=== PATIENT | male | born 1980 | race Caucasian/White ===

== ENCOUNTER 2016-05-19 18:36 | Observation (INO) | payer SELFPAY ==
[2016-05-19 19:32] VITALS: BMI 28.4
[2016-05-19 19:46] LABS: AUTOMATED BASOPHIL 0.9 % (0-2); AUTOMATED EOSINOPHIL 2.8 % (0-5); AUTOMATED LYMPH 28.1 % (17-44); AUTOMATED MONOCYTE 12.8 % (3-10); AUTOMATED NEUTROPHIL 55.4 % (45-76); MPV 9.5 fL (7.4-10.4)
[2016-05-19 20:06] LABS: BLOOD UREA NITROGEN 19 MG/DL (9-20); CALCIUM 10.1 MG/DL (8.4-10.2); CALCULATED OSMOLALITY 274 MOs/Kg (270-290); CHLORIDE 99 mEq/L (98-107); ETOH-MGDL < 10 mg/dL; GLUCOSE 76 MG/DL (70-99); SODIUM LEVEL 142 mEq/L (137-146); TOTAL PROTEIN 8.3 G/DL (6.3-8.2)
[2016-05-19 21:43] LABS: ALL NEG? YES; MDMA* NEG (NEGATIVE); METHAMPHETAMINES NEG (NEGATIVE); OXYCODONE NEG (NEGATIVE)
[2016-05-19 21:54] LABS: LEUKOCYTES/URINE NEG (NEGATIVE); NITRITE/URINE NEG (NEGATIVE); URINE OCCULT BLOOD NEG (NEG/TRACE); WBC/URINE 0-2 (0-2)
--- NOTE | 2016-05-19 22:02 | EDPRACDOC ---
- General Information Chief Complaint: Psychiatric Illness Stated Complaint: PSYCH EVAL Time Seen by Provider: 05/19/16 21:37 Information Source: Patient Mode of Arrival: Car Home Medications: Home Medications No Home Medications 05/19/16 Allergies/Adverse Reactions: Allergies Allergy/AdvReac Type Severity Reaction Status Date / Time No Known Allergies Allergy Verified 05/19/16 19:34 - History of Present Illness HPI: PT PRESENTS WITH DEPRESSION FOR ABOUT 1 YEAR, STATES THAT IS NOT USUALLY HIM - USUALLY HE IS THE [employer] [place] [employer]. HE HAS BEEN HIKING THE [employer] FROM [place] (HIS IS FROM [place]). HAS KIDS IN [place], GOOD RELATIONSHIP WITH THEM. LOST HIS MOM ABOUT 2 THANKSGIVINGS AGO. DENIES DRUG USE. INTERMITTENT ALCOHOL USE. PT HAS NO PSYCH HISTORY, NEVER TREATED FOR DEPRESSION. SUICIDAL THOUGHTS. RECENTLY SITTING ON A HIGH BRIDGE, AND THOUGHT ABOUT JUMPING BUT WAS WORRIED ABOUT WHAT IT WOULD DO TO HIS KIDS. HE IS JUST WONDERING WHAT THE POINT IS ON WALKING AROUND ON THIS EARTH. Suicidal Plan: Reports: Other ED Past Medical History - History Reviewed Yes Nurses notes reviewed and agree except as marked - Patient Medical History Psychological History: Denies: Depression Systemic History: Denies: Cancer - Social Medical History Smoking Status: Heavy tobacco smoker (5 or more cigarettes/day or daily pipe/ cigar) EDM Review of Systems - Review of Systems ROS Negative Except as Marked: Yes All systems reviewed and were negative except as marked Constitutional: No Symptoms Reported Mouth: No Symptoms Reported Respiratory: No Symptoms Reported Cardiovascular: No Symptoms Reported Gastrointestinal: No Symptoms Reported Genitourinary: No Symptoms Reported - Physical Exam Constitutional: Alert (Awake), No apparent distress Oriented to: Time, Person, Place Last recorded Vital Signs: Last Vital Signs Temp 98.6 F 05/19/16 19:28 Pulse 66 05/19/16 19:28 Resp 20 05/19/16 19:28 BP 144/84 05/19/16 19:28 Pulse Ox 99 05/19/16 19:28 Oxygen Pulse Oxygen Saturation 99 O2 Device Room Air Oxygen Flow Rate Fraction of Inspired Oxygen ( FIO2) - HEENT Head: Normal ( normocephalic) Eye Exam: Normal (PERRL, EOMI, Sclera white) Oropharynx: Normal (Pharynx:Moist without exudate,Gums-no swelling) Nose: No Symptoms Reported (septum midline) Neck: Normal (FROM, trachea at midline) - Respiratory/Cardiovascular Respiratory: Normal - CTA (BBS clear to auscultation without adventitious sounds ) Cardiovascular: Normal (RRR without murmur, gallop or rub) - GI Auscultation: Normal (NABS) Palpation: Normal (Soft,No rebound or guarding, non distended) Tenderness: Non tender Manjarrez's Sign: Negative - Musculoskeletal Back: Normal (Non-Tender) Extremities: Normal (Normal tone, Pulses 2+ No cyanosis or edema, FROM) - Integumentary Skin: Normal, Warm, Dry Lymphatics: Normal (no adenopathy) - Neurologic Memory Impaired: Normal Motor Function: Normal (Normal tone, Pulses 2+ No cyanosis or edema, FROM) Cranial Nerve: Normal (CN II-X11 intact sensation, strength 5/5) Cerebellar: Normal Mood Description: Normal Perception: Normal - Results 05/19/16 19:31 05/19/16 19:31 WBC 8.9 xk/uL (3.8-10.8) 05/19/16 19:31 RBC 4.73 xM/uL (4.70-6.10) 05/19/16 19:31 Hgb 15.6 g/dL (14.0-18.0) 05/19/16 19:31 Hct 45.4 % (42-52) 05/19/16 19:31 MCV 96 fL (80-94) H 05/19/16 19:31 MCH 33.0 pg (27-32) H 05/19/16 19:31 MCHC 34.4 g/dl (33-36) 05/19/16 19:31 RDW 13.2 % (11.5-14.5) 05/19/16 19:31 Plt Count 279 xk/uL (130-400) 05/19/16 19:31 MPV 9.5 fL (7.4-10.4) 05/19/16 19:31 Neut % (Auto) 55.4 % (45-76) 05/19/16 19:31 Lymph % (Auto) 28.1 % (17-44) 05/19/16 19:31 Parker % (Auto) 12.8 % (3-10) H 05/19/16 19:31 Eos % (Auto) 2.8 % (0-5) 05/19/16 19:31 Baso % (Auto) 0.9 % (0-2) 05/19/16 19:31 Absolute Neuts (auto) 4.90 xk/uL (1.7-8.2) 05/19/16 19:31 Absolute Lymphs (auto) 2.49 xk/uL (0.65-4.75) 05/19/16 19:31 Sodium 142 mEq/L (137-146) 05/19/16 19:31 Potassium 4.1 mEq/L (3.5-5.1) 05/19/16 19:31 Chloride 99 mEq/L (98-107) 05/19/16 19:31 Carbon Dioxide 32 mMOL/L (22-33) 05/19/16 19:31 Anion Gap 15 mEq/L (8-16) 05/19/16 19:31 BUN 19 MG/DL (9-20) 05/19/16 19:31 Creatinine 0.90 MG/DL (0.66-1.25) 05/19/16 19:31 Estimated GFR (MDRD) > 60 mL/min (>=60) 05/19/16 19:31 Glucose 76 MG/DL (70-99) 05/19/16 19:31 Calculated Osmolality 274 MOs/Kg (270-290) 05/19/16 19:31 Calcium 10.1 MG/DL (8.4-10.2) 05/19/16 19:31 Total Bilirubin 0.7 MG/DL (0.2-1.3) 05/19/16 19:31 AST 41 IU/L (17-59) 05/19/16 19:31 ALT 40 IU/L (21-72) 05/19/16 19:31 Alkaline Phosphatase 128 IU/L (38-126) H 05/19/16 19:31 Total Protein 8.3 G/DL (6.3-8.2) H 05/19/16 19:31 Albumin 4.6 G/DL (3.5-5.0) 05/19/16 19:31 Urine Color Yellow 05/19/16 21:20 Urine Clarity Clear 05/19/16 21:20 Urine pH 6.0 (5.0-8.0) 05/19/16 21:20 Ur Specific [place] 1.020 (1.003-1.035) 05/19/16 21:20 Urine Protein Neg (NEG/TRACE) 05/19/16 21:20 Urine Glucose (UA) Neg (NEGATIVE) 05/19/16 21:20 Urine Ketones Neg (NEGATIVE) 05/19/16 21:20 Urine Occult Blood Neg (NEG/TRACE) 05/19/16 21:20 Urine Nitrite Neg (NEGATIVE) 05/19/16 21:20 Urine Bilirubin Neg (NEGATIVE) 05/19/16 21:20 Urine Urobilinogen <2.0 MG/DL (0-1) 05/19/16 21:20 Ur Leukocyte Esterase Neg (NEGATIVE) 05/19/16 21:20 Urine WBC 0-2 (0-2) 05/19/16 21:20 Ur Epithelial Cells Occ 05/19/16 21:20 Urine Bacteria Few (NEG/FEW) 05/19/16 21:20 Urine Opiates Screen Neg (NEGATIVE) 05/19/16 21:20 Ur Oxycodone Screen Neg (NEGATIVE) 05/19/16 21:20 Urine Methadone Screen Neg (NEGATIVE) 05/19/16 21:20 Ur Barbiturates Screen Neg (NEGATIVE) 05/19/16 21:20 Ur Tricyclics Screen Neg (NEGATIVE) 05/19/16 21:20 Ur Phencyclidine Scrn Neg (NEGATIVE) 05/19/16 21:20 Ur Amphetamines Screen Neg (NEGATIVE) 05/19/16 21:20 U Methamphetamines Scrn Neg (NEGATIVE) 05/19/16 21:20 Urine MDMA Screen Neg (NEGATIVE) 05/19/16 21:20 U Benzodiazepines Scrn Neg (NEGATIVE) 05/19/16 21:20 Urine Cocaine Screen Neg (NEGATIVE) 05/19/16 21:20 Ur THC Screen Neg (NEGATIVE) 05/19/16 21:20 Plasma/Serum Ethyl Alc % (<0.01) 05/19/16 19:31 Lab Results 05/19/16 05/19/16 05/19/16 21:20 21:20 19:31 WBC 8.9 RBC 4.73 Hgb 15.6 Hct 45.4 MCV 96 H MCH 33.0 H MCHC 34.4 RDW 13.2 Plt Count 279 MPV 9.5 Neut % (Auto) 55.4 Lymph % (Auto) 28.1 Parker % (Auto) 12.8 H Eos % (Auto) 2.8 Baso % (Auto) 0.9 Absolute Neuts (auto) 4.90 Absolute Lymphs (auto) 2.49 Sodium Potassium Chloride Carbon Dioxide Anion Gap BUN Creatinine Estimated GFR (MDRD) Glucose Calculated Osmolality Calcium Total Bilirubin AST ALT Alkaline Phosphatase Total Protein Albumin Urine Color Yellow Urine Clarity Clear Urine pH 6.0 Ur Specific [place] 1.020 Urine Protein Neg Urine Glucose (UA) Neg Urine Ketones Neg Urine Occult Blood Neg Urine Nitrite Neg Urine Bilirubin Neg Urine Urobilinogen <2.0 Ur Leukocyte Esterase Neg Urine WBC 0-2 Ur Epithelial Cells Occ Urine Bacteria Few Urine Opiates Screen Neg Ur Oxycodone Screen Neg Urine Methadone Screen Neg Ur Barbiturates Screen Neg Ur Tricyclics Screen Neg Ur Phencyclidine Scrn Neg Ur Amphetamines Screen Neg U Methamphetamines Scrn Neg Urine MDMA Screen Neg U Benzodiazepines Scrn Neg Urine Cocaine Screen Neg Ur THC Screen Neg Plasma/Serum Ethyl Alc 05/19/16 19:31 WBC RBC Hgb Hct MCV MCH MCHC RDW Plt Count MPV Neut % (Auto) Lymph % (Auto) Parker % (Auto) Eos % (Auto) Baso % (Auto) Absolute Neuts (auto) Absolute Lymphs (auto) Sodium 142 Potassium 4.1 Chloride 99 Carbon Dioxide 32 Anion Gap 15 BUN 19 Creatinine 0.90 Estimated GFR (MDRD) > 60 Glucose 76 Calculated Osmolality 274 Calcium 10.1 Total Bilirubin 0.7 AST 41 ALT 40 Alkaline Phosphatase 128 H Total Protein 8.3 H Albumin 4.6 Urine Color Urine Clarity Urine pH Ur Specific [place] Urine Protein Urine Glucose (UA) Urine Ketones Urine Occult Blood Urine Nitrite Urine Bilirubin Urine Urobilinogen Ur Leukocyte Esterase Urine WBC Ur Epithelial Cells Urine Bacteria Urine Opiates Screen Ur Oxycodone Screen Urine Methadone Screen Ur Barbiturates Screen Ur Tricyclics Screen Ur Phencyclidine Scrn Ur Amphetamines Screen U Methamphetamines Scrn Urine MDMA Screen U Benzodiazepines Scrn Urine Cocaine Screen Ur THC Screen Plasma/Serum Ethyl Alc - Departure Yes I personally saw and evaluated the patient. Condition: Stable Final Diagnosis: Moderate major depression, single episode Prescriptions: No Action No Home Medications 0 NA DIR #0 info
[2016-05-20] MEDS ORDERED: NICOTINE 21 MG PATCH TOP ONE (04:45)
--- NOTE | 2016-05-20 08:13 | EDTUNOTE ---
- SOAP Note Patient Problems: Active Problems Moderate major depression, single episode (Acute) SOAP Note: S: pt calm, eating breakfast. has no complaints. O: VS nml A: Moderate major depression, single episode (Acute) P: will continue to monitor pending disposition
[2016-05-20 11:36] VITALS: TEMP 98.2
[2016-05-20 16:05] VITALS: BP 123/80; PULSE 90
== END 2016-05-20 18:50 ==
LOC: ED 18:36 → TUOBSINP 21:59
PROVIDERS: ADMIT Emergency Medicine; ATTEND Emergency Medicine
DX: F32.1 Major depressive disorder, single episode, moderate (principal); F17.210 Nicotine dependence, cigarettes, uncomplicated
CPT/HCPCS: 36415; 80053; 80307; 81001; 85025; 86592; 99285; G0378; J3490

== ENCOUNTER 2016-05-29 19:16 | Emergency (ER) | payer SELFPAY ==
[2016-05-29 19:25] VITALS: TEMP 98.3; BMI 27.9
[2016-05-29 19:36] LABS: AUTOMATED BASOPHIL 0.8 % (0-2); AUTOMATED EOSINOPHIL 1.1 % (0-5); AUTOMATED LYMPH 20.4 % (17-44); AUTOMATED MONOCYTE 10.8 % (3-10); AUTOMATED NEUTROPHIL 66.9 % (45-76); MPV 8.9 fL (7.4-10.4)
[2016-05-29 19:49] LABS: BLOOD UREA NITROGEN 20 MG/DL (9-20); CALCIUM 9.8 MG/DL (8.4-10.2); CALCULATED OSMOLALITY 277 MOs/Kg (270-290); CHLORIDE 103 mEq/L (98-107); GLUCOSE 80 mg/dL (70-99); SODIUM LEVEL 143 mEq/L (137-146); TOTAL PROTEIN 7.9 G/DL (6.3-8.2)
[2016-05-29 20:49] LABS: LEUKOCYTES/URINE NEG (NEGATIVE); NITRITE/URINE NEG (NEGATIVE); RBC/URINE 0-2 (0-2); URINE OCCULT BLOOD NEG (NEG/TRACE); WBC/URINE 0-2 (0-2)
--- NOTE | 2016-05-29 21:07 | EDPRACDOC ---
- General Information Chief Complaint: Abdominal Pain Stated Complaint: FLANK PAIN Time Seen by Provider: 05/29/16 20:10 Information Source: Patient Mode Of Arrival: Walk Home Medications: Home Medications Ibuprofen Tablet [Motrin] 800 mg PO TID #30 tab 05/29/16 Pantoprazole Sodium [Protonix] 40 mg PO DAILY 05/29/16 Allergies/Adverse Reactions: Allergies Allergy/AdvReac Type Severity Reaction Status Date / Time No Known Allergies Allergy Verified 05/19/16 19:34 - History of Present Illness Onset: 1-2 WEEKS Pain Location: Reports: LLQ, Flank Pain Context: Reports: Spontaneous Pain Severity: Moderate Pain Quality: Reports: Aching Adult Abdominal History: Denies: Abdominal Surgery, Urolithiasis, Bowel Obstruction, Similar Pain (dx) Modifying Factors: improves with: Movement Associated Signs & Symptoms: Reports: Nausea. Denies: Vomiting, Diarrhea, Melena, Dysuria, Fever Oral Intake: Normal Urinary Output: Normal - Treatment Prior to ED Arrival Reported Medications/Treatment FISHER DIVING Medications FISHER DIVING (Medication/ Good's powder 1 package 2hr FISHER DIVING Dose/Time) ED Past Medical History - History Reviewed Yes Nurses notes reviewed and agree except as marked - Patient Medical History Psychological History: Reports: Depression ( RECENT PSYCH EVAL FOR DEPRESSION.) Systemic History: Denies: Cancer - Social Medical History Smoking Status: Current some day smoker Lives With: Other ( FROM FROM [place], ALLEG[facility]LY [facility]. RECENT MEDICAL RECORDS NOTE HE HAS BEEN TO SEVERAL EMERGENCY DEPARTMENT THROUGH THE AREA.) EDM Review of Systems - Review of Systems ROS Negative Except as Marked: Yes All systems reviewed and were negative except as marked - Physical Exam Constitutional: Alert (Awake), No apparent distress Oriented to: Time, Person, Place Last recorded Vital Signs: Last Vital Signs Temp 98.3 F 05/29/16 19:21 Pulse 94 05/29/16 19:21 Resp 20 05/29/16 19:21 BP 146/86 05/29/16 19:21 Pulse Ox 98 05/29/16 19:21 Oxygen Pulse Oxygen Saturation 98 O2 Device Room Air Oxygen Flow Rate Fraction of Inspired Oxygen ( FIO2) - HEENT Head: Normal ( normocephalic) Eye Exam: Normal (PERRL, EOMI, Sclera white) Oropharynx: Normal (Pharynx:Moist without exudate,Gums-no swelling) Tympanic Membrane: Normal ENT EAC: Normal TMJ: Normal Nose: No Symptoms Reported (septum midline) Neck: Normal (FROM, trachea at midline) - Respiratory/Cardiovascular Respiratory: Normal - CTA (BBS clear to auscultation without adventitious sounds ) Cardiovascular: Normal (RRR without murmur, gallop or rub) - GI Auscultation: Normal (NABS) Palpation: Normal (Soft,No rebound or guarding, non distended) Tenderness: Non tender Manjarrez's Sign: Negative - Musculoskeletal Back: Normal (Non-Tender) Extremities: Normal (Normal tone, Pulses 2+ No cyanosis or edema, FROM) - Integumentary Skin: Normal, Warm, Dry Lymphatics: Normal (no adenopathy) - Neurologic Memory Impaired: Normal Motor Function: Normal (Normal tone, Pulses 2+ No cyanosis or edema, FROM) Cranial Nerve: Normal (CN II-X11 intact sensation, strength 5/5) Cerebellar: Normal Mood Description: Normal Perception: Normal - Results 05/29/16 19:27 05/29/16 19:27 WBC 13.4 xk/uL (3.8-10.8) H 05/29/16 19:27 RBC 4.65 xM/uL (4.70-6.10) L 05/29/16 19:27 Hgb 14.9 g/dL (14.0-18.0) 05/29/16 19:27 Hct 44.2 % (42-52) 05/29/16 19:27 MCV 95 fL (80-94) H 05/29/16 19:27 MCH 32.0 pg (27-32) 05/29/16 19:27 MCHC 33.7 g/dl (33-36) 05/29/16 19:27 RDW 12.8 % (11.5-14.5) 05/29/16 19:27 Plt Count 286 xk/uL (130-400) 05/29/16 19:27 MPV 8.9 fL (7.4-10.4) 05/29/16 19:27 Neut % (Auto) 66.9 % (45-76) 05/29/16 19:27 Lymph % (Auto) 20.4 % (17-44) 05/29/16 19:27 Quay % (Auto) 10.8 % (3-10) H 05/29/16 19:27 Eos % (Auto) 1.1 % (0-5) 05/29/16 19:27 Baso % (Auto) 0.8 % (0-2) 05/29/16 19:27 Absolute Neuts (auto) 8.84 xk/uL (1.7-8.2) H 05/29/16 19:27 Absolute Lymphs (auto) 2.68 xk/uL (0.65-4.75) 05/29/16 19:27 Sodium 143 mEq/L (137-146) 05/29/16 19:27 Potassium 4.0 mEq/L (3.5-5.1) 05/29/16 19:27 Chloride 103 mEq/L (98-107) 05/29/16 19:27 Carbon Dioxide 28 mMOL/L (22-33) 05/29/16 19:27 Anion Gap 16 mEq/L (8-16) 05/29/16 19:27 BUN 20 MG/DL (9-20) 05/29/16 19:27 Creatinine 1.10 MG/DL (0.66-1.25) 05/29/16 19:27 Estimated GFR (MDRD) > 60 mL/min (>=60) 05/29/16 19:27 Glucose 80 mg/dL (70-99) 05/29/16 19:27 Calculated Osmolality 277 MOs/Kg (270-290) 05/29/16 19:27 Calcium 9.8 MG/DL (8.4-10.2) 05/29/16 19:27 Total Bilirubin 1.2 MG/DL (0.2-1.3) 05/29/16 19:27 AST 38 IU/L (17-59) 05/29/16 19:27 ALT 45 IU/L (21-72) 05/29/16 19:27 Alkaline Phosphatase 115 IU/L (38-126) 05/29/16 19:27 Total Protein 7.9 G/DL (6.3-8.2) 05/29/16 19:27 Albumin 4.5 G/DL (3.5-5.0) 05/29/16 19:27 Urine Color Yellow 05/29/16 19:27 Urine Clarity Clear 05/29/16 19:27 Urine pH 5.0 (5.0-8.0) 05/29/16 19:27 Ur Specific [place] 1.030 (1.003-1.035) 05/29/16 19:27 Urine Protein Neg (NEG/TRACE) 05/29/16 19:27 Urine Glucose (UA) Neg (NEGATIVE) 05/29/16 19:27 Urine Ketones 1+ (NEGATIVE) H 05/29/16 19:27 Urine Occult Blood Neg (NEG/TRACE) 05/29/16 19:27 Urine Nitrite Neg (NEGATIVE) 05/29/16 19:27 Urine Bilirubin Neg (NEGATIVE) 05/29/16 19:27 Urine Urobilinogen <2.0 MG/DL (0-1) 05/29/16 19:27 Ur Leukocyte Esterase Neg (NEGATIVE) 05/29/16 19:27 Urine RBC 0-2 (0-2) 05/29/16 19:27 Urine WBC 0-2 (0-2) 05/29/16 19:27 Urine Mucus Occ (NEG/OCC) 05/29/16 19:27 Lab Results 05/29/16 05/29/16 05/29/16 19:27 19:27 19:27 WBC 13.4 H RBC 4.65 L Hgb 14.9 Hct 44.2 MCV 95 H MCH 32.0 MCHC 33.7 RDW 12.8 Plt Count 286 MPV 8.9 Neut % (Auto) 66.9 Lymph % (Auto) 20.4 Quay % (Auto) 10.8 H Eos % (Auto) 1.1 Baso % (Auto) 0.8 Absolute Neuts (auto) 8.84 H Absolute Lymphs (auto) 2.68 Sodium 143 Potassium 4.0 Chloride 103 Carbon Dioxide 28 Anion Gap 16 BUN 20 Creatinine 1.10 Estimated GFR (MDRD) > 60 Glucose 80 Calculated Osmolality 277 Calcium 9.8 Total Bilirubin 1.2 AST 38 ALT 45 Alkaline Phosphatase 115 Total Protein 7.9 Albumin 4.5 Urine Color Yellow Urine Clarity Clear Urine pH 5.0 Ur Specific [place] 1.030 Urine Protein Neg Urine Glucose (UA) Neg Urine Ketones 1+ H Urine Occult Blood Neg Urine Nitrite Neg Urine Bilirubin Neg Urine Urobilinogen <2.0 Ur Leukocyte Esterase Neg Urine RBC 0-2 Urine WBC 0-2 Urine Mucus Occ - Diagnostic Imaging Abdomen Image interpreted by: Radiologist 05/29/16 22:10 Patient Name: NATHANAEL GREENBERG LOC: ED : 1980 AGE: 36 Order Date:05/29/16 Date of Service:09/07 Report # [id number] Ord Physician: Kiana Noyola MD Exam # [id number] Emergency Physician: Kiana Noyola MD Exam(s): [id number] CT/CT UROGRAM CLINICAL DATA: 36-year-old male with left flank pain. EXAM: CT ABDOMEN AND PELVIS WITHOUT CONTRAST TECHNIQUE: Multidetector CT imaging of the abdomen and pelvis was performed following the standard protocol without IV contrast. COMPARISON: None. FINDINGS: Evaluation of this exam is limited in the absence of intravenous contrast. The visualized lung bases are clear. No intra-abdominal free air or free fluid. Diffuse hepatic steatosis. The gallbladder, pancreas, spleen, and adrenal glands, kidneys, visualized ureters, and urinary bladder appear unremarkable. The prostate and seminal vesicles are grossly unremarkable. There is moderate stool throughout the colon. No evidence of bowel obstruction or inflammation. Normal appendix. The abdominal aorta and IVC appear grossly unremarkable on this noncontrast study. No portal venous gas identified. There is no adenopathy. Small fat containing umbilical hernia. The abdominal wall soft tissues are otherwise unremarkable. The osseous structures are intact. IMPRESSION: No acute intra-abdominal pelvic pathology. Electronically Signed By: Liam Lyons M.D. On: 05/29/2016 22:00 Electronically Signed By: Liam Lyons MD Electronically Signed Date/Time: Dictate Date/Time: 05/29/162154 Technologist: Starla Ocasio Transcribed By: Brenda Transcribed Date/Time: 05/29/16 2200 - Departure Disposition: Home Condition: Stable Final Diagnosis: Lumbar spine strain Qualifiers: Encounter type: initial encounter Qualified Code(s): S39.012A - Strain of muscle, fascia and tendon of lower back, initial encounter Instructions: Back Pain (ED), Core Strengthening Exercises (GEN), Thoracic ( Lumbar) Strain Education/Counseling Given To: Patient Education/Counseling Given Regarding: Diagnosis, Treatment, Prognosis Referrals: None,No Provider [Primary Care Provider] - One Week Prescriptions: New Ibuprofen Tablet [Motrin] 800 mg PO TID #30 tab No Action Pantoprazole Sodium [Protonix] 40 mg PO DAILY
--- NOTE | 2016-05-29 22:03 | DIRPT ---
CLINICAL DATA: 36-year-old male with left flank pain. EXAM: CT ABDOMEN AND PELVIS WITHOUT CONTRAST TECHNIQUE: Multidetector CT imaging of the abdomen and pelvis was performed following the standard protocol without IV contrast. COMPARISON: None. FINDINGS: Evaluation of this exam is limited in the absence of intravenous contrast. The visualized lung bases are clear. No intra-abdominal free air or free fluid. Diffuse hepatic steatosis. The gallbladder, pancreas, spleen, and adrenal glands, kidneys, visualized ureters, and urinary bladder appear unremarkable. The prostate and seminal vesicles are grossly unremarkable. There is moderate stool throughout the colon. No evidence of bowel obstruction or inflammation. Normal appendix. The abdominal aorta and IVC appear grossly unremarkable on this noncontrast study. No portal venous gas identified. There is no adenopathy. Small fat containing umbilical hernia. The abdominal wall soft tissues are otherwise unremarkable. The osseous structures are intact. IMPRESSION: No acute intra-abdominal pelvic pathology. Electronically Signed By: Liam Lyons M.D. On: 05/29/2016 22:00
[2016-05-29] MEDS: IBUPROFEN 800 MG TAB PO ONE ×2 (22:20→22:26)
[2016-05-29 22:27] VITALS: BP 125/74; PULSE 75
== END 2016-05-29 22:25 | disposition home or self-care (01) ==
LOC: ED 19:16
DX: S39.012A Strain of muscle, fascia and tendon of lower back, initial encounter (principal); X58.XXXA Exposure to other specified factors, initial encounter; Y93.9 Activity, unspecified
CPT/HCPCS: 36415; 74176; 80053; 81001; 85025; 99284; J3490